=== PATIENT | male | born 1995 | race Caucasian/White ===

== ENCOUNTER 2017-06-11 10:08 | Emergency (ER) | payer OTHER ==
[~2017-06-11] VITALS: Ht 175.3 cm; Wt 91.0 kg
[2017-06-11 10:10] VITALS: TEMP 36.5; Ht 175.3 cm; Wt 91.0 kg
[2017-06-11 10:25] VITALS: O2SAT 97
[2017-06-11 11:34] LABS: BASO % 0.2 %; BASO ABS # 0.01 K/uL (0-0.2); COMPLETE YES; EOS % 1.8 %; HEMATOCRIT 47.3 % (42-52); IG% 0.2 %; LYMPH % 38.3 %; LYMPH ABS # 1.89 K/uL (1.2-3.4); MEAN CELL VOLUME 86.6 fL (80-100); MEAN CORPUSCULAR HEMOGLOBIN 30.2 pg (25-34); MEAN CORPUSCULAR HGB CONC 34.9 g/dl (32-36); MEAN PLATELET VOLUME 10.2 fL (7.4-10.4); MONO % 10.1 %; NEUT % 49.4 %; PLATELET COUNT 212 K/uL (130-400); RED BLOOD COUNT 5.46 M/uL (4.7-6.1); WHITE BLOOD COUNT 4.93 K/uL (4.8-10.8)
[2017-06-11 11:39] LABS: BLOOD UREA NITROGEN 17 mg/dl (7-18); BUN/CREATININE RATIO 18.2 (10-20); CALCIUM 9.4 mg/dl (8.5-10.1); CARBON DIOXIDE 29 mmol/L (21-32); CHLORIDE 103 mmol/L (98-107); CREATININE 0.92 mg/dl (0.60-1.40); GLUCOSE 91 mg/dl (70-99); POTASSIUM 3.5 mmol/L (3.5-5.1); SODIUM 142 mmol/L (136-145)
--- NOTE | 2017-06-11 11:41 | DIAGNOSTIC IMAGING REPORT ---
CHEST ONE VIEW PORTABLE CLINICAL HISTORY: 22 years-old Male presenting with Evaluate Fever/Sepsis. TECHNIQUE: Portable upright AP view of the chest was obtained. COMPARISON: None. FINDINGS: Cardiomediastinal silhouette normal. Lungs and pleural spaces clear. Osseous structures normal. Upper abdomen normal. IMPRESSION: 1. No acute cardiopulmonary disease. Electronically signed by: Jamal Bullock M.D. 06/11/2017 11:40 AM Dictated Date/Time: 06/11/2017 11:36 AM
--- NOTE | 2017-06-11 12:16 | EMERGENCY ROOM VISIT NOTE ---
History Report prepared by Andrew: Sheri Coats Under the Supervision of: Dr. Gene Zambrano D.O. First contact with patient: 10:29 Chief Complaint: CARDIAC ASSESSMENT Stated Complaint: EKG IS ABNORMAL Nursing Triage Summary: pt to the ED with c/o being sent over by [facility] with c/o left sided chest pain and had a EKG done with a abnormal ekg no c/o pain now but has had this pain intermittantly a few times a month for a few seconds over 3-4 years History of Present Illness The patient is a 22 year old male who presents to the Emergency Room for a cardiac assessment. The patient states that intermittently over the past few years he has had sharp, stabbing pain in the left side of his chest. This lasts for a few seconds and then resolves. He does not feel short of breath with his chest pain. This has never occurred with exercise. The patient had a routine appointment with [facility] and described his symptoms. He had an ECG done at that time which was abnormal. He was advised to come to the ED for further evaluation. The patient denies any symptoms at this time. He states that he has not had any chest pain for a few weeks. Source of History: patient Onset: 3-4 years ago Position: chest (left) Quality: sharp, stabbing Timing: intermittent Modifying Factors (Relieving): other (time) Associated Symptoms: No SOB Review of Systems See HPI for pertinent positives & negatives. A total of 10 systems reviewed and were otherwise negative. Past Medical & Surgical Medical Problems: (1) No significant active problems Family History No pertinent history stated. Social History Smoking Status: Never Smoker Marital Status: single Occupation Status: [employer] student Current/Historical Medications No Active Prescriptions or Reported Meds Allergies Coded Allergies: No Known Allergies (Unverified , 06/11/17) Physical Exam Vital Signs Date Time Temp Pulse Resp B/P (MAP) Pulse Ox O2 Delivery O2 Flow Rate FiO2 06/11/17 11:27 69 18 144/78 97 Room Air 06/11/17 10:32 63 06/11/17 10:25 97 Room Air 06/11/17 10:10 36.5 68 18 146/79 98 Physical Exam CONSTITUTIONAL/VITAL SIGNS: Reviewed / noted above. GENERAL: Non-toxic in appearance. INTEGUMENTARY: Warm, dry, and [place]. HEAD: Normocephalic. EYES: without scleral icterus or trauma. ENT/OROPHARYNX: clear and moist. LYMPHADENOPATHY/NECK: Is supple without lymphadenopathy or meningismus. RESPIRATORY: Lungs clear and equal. CARDIOVASCULAR: Regular rate and rhythm. GI/ABDOMEN: Soft and nontender. No organomegaly or pulsatile mass. No rebound or guarding. Normal bowel sounds. EXTREMITIES: Warm and well perfused. BACK: No CVA tenderness. NEUROLOGICAL: Intact without focal deficits. PSYCHIATRIC: normal affect. MUSCULOSKELETAL: Normally developed with good muscle tone. Medical Decision & Procedures ER Provider Diagnostic Interpretation: Radiology results as stated below per my review and radiologist interpretation: CHEST ONE VIEW PORTABLE CLINICAL HISTORY: 22 years-old Male presenting with Evaluate Fever/Sepsis. TECHNIQUE: Portable upright AP view of the chest was obtained. COMPARISON: None. FINDINGS: Cardiomediastinal silhouette normal. Lungs and pleural spaces clear. Osseous structures normal. Upper abdomen normal. IMPRESSION: 1. No acute cardiopulmonary disease. Electronically signed by: Jamal Bullock M.D. 06/11/2017 11:40 AM Dictated Date/Time: 06/11/2017 11:36 AM Laboratory Results 06/11/17 10:30 Red Blood Count 5.46, Mean Corpuscular Volume 86.6, Mean Corpuscular Hemoglobin 30.2, Mean Corpuscular Hemoglobin Concent 34.9, Mean Platelet Volume 10.2, Neutrophils (%) (Auto) 49.4, Lymphocytes (%) (Auto) 38.3, Monocytes (%) (Auto) 10.1, Eosinophils (%) (Auto) 1.8, Basophils (%) (Auto) 0.2, Neutrophils # (Auto ) 2.43, Lymphocytes # (Auto) 1.89, Monocytes # (Auto) 0.50, Eosinophils # (Auto ) 0.09, Basophils # (Auto) 0.01 06/11/17 10:30 Test 06/11/17 10:30 White Blood Count 4.93 K/uL (4.8-10.8) Red Blood Count 5.46 M/uL (4.7-6.1) Hemoglobin 16.5 g/dL (14.0-18.0) Hematocrit 47.3 % (42-52) Mean Corpuscular Volume 86.6 fL (80-100) Mean Corpuscular Hemoglobin 30.2 pg (25-34) Mean Corpuscular Hemoglobin Concent 34.9 g/dl (32-36) Platelet Count 212 K/uL (130-400) Mean Platelet Volume 10.2 fL (7.4-10.4) Neutrophils (%) (Auto) 49.4 % Lymphocytes (%) (Auto) 38.3 % Monocytes (%) (Auto) 10.1 % Eosinophils (%) (Auto) 1.8 % Basophils (%) (Auto) 0.2 % Neutrophils # (Auto) 2.43 K/uL (1.4-6.5) Lymphocytes # (Auto) 1.89 K/uL (1.2-3.4) Monocytes # (Auto) 0.50 K/uL (0.11-0.59) Eosinophils # (Auto) 0.09 K/uL (0-0.5) Basophils # (Auto) 0.01 K/uL (0-0.2) RDW Standard Deviation 42.1 fL (36.4-46.3) RDW Coefficient of Variation 13.4 % (11.5-14.5) Immature Granulocyte % (Auto) 0.2 % Immature Granulocyte # (Auto) 0.01 K/uL (0.00-0.02) Anion Gap 10.0 mmol/L (3-11) Est Creatinine Clear Calc Drug Dose 141.6 ml/min Estimated GFR () 137.3 Estimated GFR (Non- 118.5 BUN/Creatinine Ratio 18.2 (10-20) Calcium Level 9.4 mg/dl (8.5-10.1) Troponin I < 0.015 ng/ml (0-0.045) Laboratory results as stated above per my review. ECG Indication: chest pain Rate (beats per minute): 77 Rhythm: normal sinus Findings: no acute ischemic change, no ectopy ED Course 1029: Previous medical records were reviewed. The patient was evaluated in room B6. A complete history and physical examination was performed. 1224: I reassessed the patient at this time. He is feeling better and resting comfortably. I discussed the results and treatment plan with the patient. I answered all pertaining questions that he had. He expressed understanding and verbalized agreement. The patient will be discharged home. Medical Decision Differentials considered include acute myocardial infarction, acute coronary syndrome, myocarditis, pericarditis, pericardial effusions /tamponade, esophageal perforation, thoracic aortic dissection, pulmonary embolism, pneumonia, pneumothorax, pancreatitis, shingles, acute cholecystitis, and perforated abdominal viscus. This is a 22-year-old male who presents to the ED with a chief complaint of chest discomfort. The patient states that he has occasional left-sided sharp chest pain that lasted for a few seconds and then goes away. He states that he has had the symptoms 2014. It is intermittent in nature. Sometimes associated with doing activities such as working out and other times it occurs when he is moving her sleeping in certain positions. The patient last had an episode 2 weeks ago. He has not had any recent symptoms. He was seen at [facility] today. An EKG appeared to be abnormal, per the provider there. He was sent here for evaluation. His EKG here shows a sinus rhythm without acute injury or ectopy. Chest x-ray was clear. Blood work was normal. Troponin was normal. The patient was told the results of this test. He is currently asymptomatic. He is felt to be stable for discharge and outpatient follow-up. Medication Reconcilliation Current Medication List: was personally reviewed by me Blood Pressure Screening Patient's blood pressure: Normal blood pressure Impression Primary Impression: Precordial chest pain Scribe Attestation The scribe's documentation has been prepared under my direction and personally reviewed by me in its entirety. I confirm that the note above accurately reflects all work, treatment, procedures, and medical decision making performed by me. Departure Information Dispostion Home / Self-Care Prescriptions No Active Prescriptions or Reported Meds Referrals No Doctor, Assigned (PCP) Patient Instructions ED Chest Pain NonCardiac, [facility] Additional Instructions Follow-up with your doctor for further care and evaluation if symptoms persist. Return to the emergency department for worsening or new symptoms or any concerns. You have been examined and treated today on an emergency basis only. This is not a substitute for, or an effort to provide, complete comprehensive medical care. It is impossible to recognize and treat all injuries or illnesses in a single emergency department visit. It is therefore important that you follow up closely with your doctor. Call as soon as possible for an appointment.
[2017-06-11 12:43] VITALS: BP 139/69; PULSE 60; O2SAT 98
== END 2017-06-11 12:45 | disposition home or self-care (01) ==
LOC: C.EDB 10:11
DX: R07.2 Precordial pain (principal); R94.31 Abnormal electrocardiogram [ECG] [EKG]